=== PATIENT | female | born 1950 | race Caucasian/White ===

== ENCOUNTER 2020-12-19 06:10 | Inpatient (IN) ==
--- NOTE | 2020-11-22 11:31 | PAT Medication Instructions ---
Medication Instructions Date of Service November 22, 2020 Home Medications Medication Instructions Recorded polyethylene glycol 3350 17 17 g PO DAILY #119 g 09/20/20 gram/dose oral powder Wheeled walker with seat #1 ea 09/26/20 hydrocodone 5 mg-acetaminophen 325 See Rx Instructions PO Q8H PRN #60 11/19/20 mg tablet tab polyethylene glycol 3350 17 gram/dose oral powder 17 g PO DAILY Women's Daily Formula 1 tab PO QAM atorvastatin 40 mg PO PM cinnamon bark [Cinnamon] 500 mg PO QAM furosemide [Lasix] 40 mg PO QAM hydrocodone 5 mg-acetaminophen 325 mg tablet PO Q8H PRN STOP taking 2 weeks before surgery If surgery is within 2 weeks, stop taking as soon as possible. cinnamon bark [Cinnamon] 500 mg PO QAM DO NOT take the morning of surgery polyethylene glycol 3350 17 gram/dose oral powder 17 g PO DAILY Women's Daily Formula 1 tab PO QAM furosemide [Lasix] 40 mg PO QAM Take morning of surgery With a small sip of water, OTHERWISE NOTHING TO EAT OR DRINK AFTER MIDNIGHT: hydrocodone 5 mg-acetaminophen 325 mg tablet PO Q8H PRN (if really needed, may be taken up to four hours before surgery) Take evening before surgery atorvastatin 40 mg PO PM hydrocodone 5 mg-acetaminophen 325 mg tablet PO Q8H PRN (if needed) Other Notes If you have any questions please call us at [phone] or [phone] or [phone] or [phone]
--- NOTE | 2020-11-27 12:06 | Anesthesiology Consultation ---
Date of Service November 27, 2020 Assessment & Plan (1) Encounter for pre-operative examination: Chart Review Chart Review: Pending: Refer to Additional Notes / Consult section (pending surgeon ordered PCP clearance/most recent cardio note/ preop Covid testing ) and Patient seen in Pre Admission Testing Awaiting surgeon ordered PCP clearance scheduled 11/30/20 and most recent cardio note - Check [facility] AM DOS Per PAT appointment 11/27/2020, patient denies any recent travel. No known Covid infection past 90 days. No known Covid positive contacts or Covid related symptoms. Preop Covid testing schedule 12/12/20 = will await results. Educated on importance of self quarantining, social distancing and wearing mask in public both for the patient and household contacts. Teaching & Discussion Pre-Anesthesia Teaching/Discussion Notes: Instructed NPO after midnight before surgery,except medications with 15 cc of water. Medication instructions provided according to the [facility] guidelines. History Surgery Operation Date: 12/19/20 07:45 Proposed Procedures p L1-L5 Decompression and Fusion, Spinal Cord Monitoring - Naveed Hale DO Height/Weight Height: 5 ft 6 in Weight: 105.2 kg Allergies Allergy/AdvReac Type Severity Reaction Status Date / Time Penicillins Allergy Mild blotches Uncoded 11/19/20 10:19 on skin Medications Home Medications Medication Instructions Recorded Confirmed Last Taken polyethylene glycol 3350 17 17 g PO DAILY #119 g 09/20/20 11/19/20 10/25/20 19:00 gram/dose oral powder Wheeled walker with seat #1 ea 09/26/20 11/13/20 Unknown Women's Daily Formula 1 tab PO QAM 10/12/20 11/19/20 10/25/20 08:00 atorvastatin 40 mg PO PM 10/12/20 11/19/20 10/25/20 19:00 cinnamon bark [Cinnamon] 500 mg PO QAM 10/12/20 11/19/20 10/25/20 08:00 furosemide [Lasix] 40 mg PO QAM 10/12/20 11/19/20 10/25/20 08:00 hydrocodone 5 mg-acetaminophen 325 See Rx Instructions PO Q8H PRN #60 11/19/20 Unknown mg tablet tab Past Medical History Medical History Anxiety no meds at present Benign essential hypertension No medications at this time Degenerative disc disease, lumbar Eczema Hyperlipidemia Lumbar spinal stenosis Lumbar spondylosis Mitral valve prolapse follows Dr. Sorenson in [place] Per 10/2020 ECHO- mild sclerotic changes to MV with trace MR but otherwise no noted issues Osteoarthritis Prediabetes Diet control per pt PCP monitoring- Hgb A1C up to 6.5 in Sep 2020- PCP monitoring Rosacea Seasonal allergies Urinary incontinence Exercise / Class Metabolic Activity III < 4 Walking/Shop/Light housework (no chest pain or SOB with short distance, flat surface ambulation - uses wheeled walker only when outside of house ) Past Family History Family History Father Coronary heart disease Myocardial infarction, Onset Age: 58 Mother Stroke Dyslipidemia Glaucoma Brother Myocardial infarction Family/Other Breast cancer niece Denies family history of Ovarian cancer Prostate cancer Colorectal cancer Past Surgical History Surgical History History of cardiac cath no stents > 11/28/16 > [facility] History of colonoscopy History of hysterectomy History of tooth extraction S/P cataract extraction (02/2018) bilat S/P right knee arthroscopy (11/09/19) w/ menisectomy medial and lateral Past Anesthesia History No Hx of Anesthesia Complications and No Family Hx of Anesthesia Complications (no known issues but patient unsure - does not discuss specifics with family ) History of PONV No Hx of PONV and No Hx of Motion Sickness Social History Smoking Status: Never smoker Do You Dip or Chew Tobacco: No Hx Alcohol Use: Yes Alcohol type: wine alcohol intake frequency: a few times a month Hx Substance Use: No substance use type: does not use Review of Systems Patient denies chest pain, shortness of breath, dyspnea on exertion, reflux, cough, wheezing, palpitations. No hx of seizures, stroke, [place], apnea/snoring. No hx of blood clots or blood transfusions Physical Exam Vital Signs VITALS BP 165/67 (usually under better control per patient) P 69 TEMP 98.3 SP02 95% RESP 16 Constitutional no acute distress ENMT Mouth: no TMJ clicking Thyromental Distance: < 3.5 Finger Breadths (3.0) Mallampati Class: II Denies loose or missing teeth Neck + short neck, + thick neck and + limited neck extension (minimal ) Respiratory normal respiratory effort; no respiratory distress Auscultation: lungs clear to auscultation bilaterally; no wheezes Cardiovascular Rate/Rhythm: regular rate and regular rhythm Heart Sounds: no murmur Vessels: no carotid bruit Musculoskeletal Spine: no pain with cervical ROM Extremities: extremities normal to inspection Psychiatric Orientation: alert Testing Laboratory Results 11/27/20 12:35 11/27/20 12:35 PT 9.8 Seconds (9.0-12.0) 11/27/20 12:35 INR 1.0 (0.9-1.1) 11/27/20 12:35 APTT 26.8 Seconds (21.0-31.0) 11/27/20 12:35 Hemoglobin A1c 6.2 % (4.5-5.6) H 11/27/20 12:35 Urine Color Yellow 11/27/20 Unknown Urine Appearance Clear (Clear) 11/27/20 Unknown Urine pH 5.0 (4.5-7.5) 11/27/20 Unknown Ur Specific [place] 1.018 (1.000-1.030) 11/27/20 Unknown Urine Protein Negative (Negative) 11/27/20 Unknown Urine Glucose (UA) Negative (Negative) 11/27/20 Unknown Urine Ketones Negative (Negative) 11/27/20 Unknown Urine Nitrite Negative (Negative) 11/27/20 Unknown Ur Leukocyte Esterase Negative (Negative) 11/27/20 Unknown Blood Type O Positive 11/27/20 12:35 Antibody Screen NEGATIVE 11/27/20 12:35 Electrocardiogram Date: 10/17/20 Normal sinus rhythm with sinus arrhythmia at 76 bpm. Poor R wave progression. (Done at cardio office- had ECHO done same day that showed no acute issues) Chest X-Ray Date: 11/27/20 Findings: + NAD Mild bibasilar opacities favor atelectasis or scarring Echocardiogram Date: 10/17/20 EF: 55% LV Function: normal RWMA: + none Other Findings: + LVH (Borderline) Cardiac Catheterization Date: 11/14/16 LM = angiographically normal. LAD = angiographically normal. Circumflex = angiographically normal. RCA = angiographically normal. Patient has angiographically normal coronary arteries, normal left ventriculogram.
--- NOTE | 2020-11-27 13:24 | XRay Report ---
XR chest Pre-admission PA/Lat CLINICAL HISTORY: Preoperative evaluation. COMPARISON STUDY: No previous studies for comparison. FINDINGS: Lung volumes are normal. There is no pneumothorax or pleural effusion. Mild bibasilar opaci ties favor atelectasis or scarring. There is no evidence for pulmonary edema or pneumonia. IMPRESSION: No acute cardiopulmonary findings. ACT 112: Negative or not required by law. Electronically signed by: Fred Whyte M.D. 11/27/2020 1:22 PM
[2020-11-27 15:12] LABS: Hematocrit (blood only) 44.8 % (37-47); Hemoglobin 15.1 g/dL (12.0-16.0); Mean Corpuscular Hemoglobin 31.5 pg (25-34); Mean Corpuscular Volume 93.5 fL (80-100); Red Blood Count 4.79 M/uL (4.2-5.4); White Blood Count 5.71 K/uL (4.8-10.8)
[2020-11-27 15:13] LABS: Basophils # (auto) 0.01 K/uL (0-0.2); Basophils % (auto) 0.2 %; Eosinophils # (auto) 0.11 K/uL (0-0.5); Eosinophils % (auto) 1.9 %; Immature Granulocytes # (auto) 0.02 K/uL (0.00-0.02); Immature Granulocytes % (auto) 0.4 %; Lymphocytes # (auto) 1.62 K/uL (1.2-3.4); Lymphocytes % (auto) 28.4 %; Mean Corpuscular Hgb Conc 33.7 g/dL (32-36); Mean Platelet Volume 9.9 fL (7.4-10.4); Monocytes # (auto) 0.51 K/uL (0.11-0.59); Monocytes % (auto) 8.9 %; Neutrophils # (auto) 3.44 K/uL (1.4-6.5); Neutrophils % (auto) 60.2 %; Platelet Count 164 K/uL (130-400); RDW Coefficient of Variation 12.6 % (11.5-14.5); RDW Standard Deviation 43.3 fL (36.4-46.3)
[2020-11-27 15:24] LABS: BUN Creatinine Ratio 16.2 (10-20); Calcium 9.8 mg/dl (8.5-10.1); Creatinine Clr Calc Pharmacy 77.1 ml/min; Est GFR (African American) 83.4; Potassium 4.1 mmol/L (3.5-5.1)
[2020-11-27 15:25] LABS: Partial Thromboplastin Time 26.8 Seconds (21.0-31.0); Prothrombin Time 9.8 Seconds (9.0-12.0)
[2020-11-27 16:38] LABS: Appearance Urine Clear (Clear); Bilirubin Urine Negative (Negative); Blood Urine Negative (Negative); Color Urine Yellow; Glucose Urine UA Negative (Negative); Ketones Urine Negative (Negative); Leukocyte Esterase Urine Negative (Negative); Nitrite Urine Negative (Negative); Protein Urine Negative (Negative); Specific Gravity Urine 1.018 (1.000-1.030); Urobilinogen Urine Negative (Negative)
[2020-11-28 05:57] LABS: Estimated Average Glucose 131 mg/dl; Hemoglobin A1C 6.2 % (4.5-5.6)
[~2020-12-19 06:10] MED LIST: ACETAMINOPHEN 500 MG TAB PO SCH; CLINDAMYCIN 600 MG/54 ML BAG IV SCH; CeleBREX 200 MG CAP PO SCH; GABAPENTIN 300 MG CAP PO SCH; LR 15ML/HR IV SCH
[2020-12-19] MEDS ORDERED: fentaNYL citrate 100 MCG/2 ML VIAL ONE (07:08)
[2020-12-19] MEDS ORDERED: MIDAZOLAM HCL 1 MG/ML 2ML VIAL ONE (07:08)
[2020-12-19] MEDS ORDERED: ALBUMIN HUMAN 5% 12.5 GM/250 ML VIAL IV ONE (07:13)
[2020-12-19] MEDS ORDERED: BACITRACIN INJ 50,000 UNIT VIAL ONE (07:14)
[2020-12-19] MEDS ORDERED: BUPIVACAINE/EPINEPHRINE 0.5% MPF 1:200,000 30 ML VIAL ONE (07:14)
--- NOTE | 2020-12-19 07:38 | History & Physical Bridge Note ---
Date of Service December 19, 2020 History & Physical Bridge Note I have examined the patient, reviewed the History & Physical and in the interval since the performance of the History & Physical I have noted the following changes of clinical significance: no changes noted
--- NOTE | 2020-12-19 07:39 | History & Physical Report ---
Date of Service December 19, 2020 Assessment & Plan (1) Neurogenic claudication due to lumbar spinal stenosis: Admission and Anticipated Discharge Date Admission Date: L1-L5 decompression fusion History of Present Illness Chief Complaint: Back and bilateral leg pain Primary Care Provider: Christina Cortez DO This is a 70-year-old female who presents with chronic persistent back and bilateral leg pain. After failing course of nonoperative care is here for surgical invention. Allergies Allergy/AdvReac Type Severity Reaction Status Date / Time Penicillins Allergy Mild blotches Uncoded 12/19/20 06:43 on skin Home Medications Medication Instructions Recorded Confirmed Type Wheeled walker with seat #1 ea 09/26/20 11/30/20 Rx Women's Daily Formula 1 tab PO QAM 10/12/20 12/19/20 History atorvastatin 40 mg PO PM 10/12/20 12/19/20 History cinnamon bark [Cinnamon] 500 mg PO QAM 10/12/20 12/19/20 History furosemide [Lasix] 40 mg PO QAM 10/12/20 12/19/20 History hydrocodone 5 mg-acetaminophen 325 See Rx Instructions PO Q8H PRN #60 12/11/20 12/19/20 Rx mg tablet tab Past Med/Surg History Medical History Anxiety Benign essential hypertension Degenerative disc disease, lumbar Eczema Hyperlipidemia Lumbar spinal stenosis Lumbar spondylosis Mitral valve prolapse Osteoarthritis Prediabetes Rosacea Seasonal allergies Urinary incontinence Surgical History History of cardiac cath History of colonoscopy History of hysterectomy History of tooth extraction S/P cataract extraction (02/2018) S/P right knee arthroscopy (11/09/19) Family History Father Coronary heart disease Myocardial infarction, Onset Age: 58 Mother Stroke Dyslipidemia Glaucoma Brother Myocardial infarction Family/Other Breast cancer niece Denies family history of Ovarian cancer Prostate cancer Colorectal cancer Social History Smoking Status: Never smoker Second Hand Exposure: No; Do You Dip or Chew Tobacco: No; Tobacco Cessation Education Requested by Patient: No Hx Alcohol Use: Yes Alcohol type: wine Alcohol Intake Frequency: Monthly or Less Hx Substance Use: No Preferred Language: Macedonian Communication Ability: Effective Visual Impairment: No Limitations Hearing Ability: Normal Stone Layout Marker Required: No Beliefs That Will Affect Care: None marital status: Current Living Situation: Significant Other 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 Other Information That Helps Us Care for You: No Feels Safe at Home: Yes Safety Concerns: Feels Safe At This Time Childhood Exposure to Second-Hand Smoke: No Diet Comment: regular caffeine: Yes during the past year weight has: remained stable Dental Care, Regularly: Yes Physical Activity Frequency: 1-2 Times per Week Seatbelt Use: always Sunscreen Use: Yes Assistive Devices: Glasses and Walker Physical Exam Physical Exam: Patient is alert and oriented Heart regular rate and rhythm Lungs clear to auscultation Results & Data ([facility]) Vital Signs (Past 12 Hours) Vital Signs Temp Pulse Resp BP Pulse Ox 12/19/20 06:53 36.6 C 67 20 162/82 H 95
[2020-12-19] MEDS ORDERED: ePHEDrine sulfate 50 MG/ML AMP IV PRN (07:41)
[2020-12-19] MEDS ORDERED: ONDANSETRON INJ 2 MG/ML 2 ML VIAL IV PRN ×2 (07:41→13:01)
[2020-12-19] MEDS ORDERED: PROMETHAZINE HCL 12.5 MG in SODIUM CHLORIDE 0.9% 50 ML IV PRN ×2 (07:41→13:01)
[2020-12-19] MEDS ORDERED: fentaNYL citrate 100 MCG/2 ML VIAL IV PRN (07:41)
[2020-12-19] MEDS ORDERED: HYDROmorphone INJ 2 MG/ML SYR/VIAL IV PRN (07:41)
[2020-12-19] MEDS ORDERED: ATROPINE SULFATE 0.1 MG/ML 10ML SYR IV PRN (07:41)
[2020-12-19] MEDS ORDERED: KETAMINE 50 MG/5 ML SYRINGE ONE (08:32)
[2020-12-19] MEDS ORDERED: HYDROmorphone INJ 2 MG/ML SYR/VIAL ONE (08:33)
[2020-12-19] MEDS ORDERED: LIDOCAINE HCL 2% 2 ML VIAL/AMP(20MG/ML) INFIL ONE (10:35)
[2020-12-19] MEDS ORDERED: NEOSTIGMINE METHYLSULFATE 1 MG/ML 10ML VIAL ONE (10:35)
[2020-12-19] MEDS ORDERED: GLYCOPYRROLATE 0.2 MG/ML VIAL ONE (10:35)
[2020-12-19] MEDS ORDERED: PROPOFOL IV EMULSION 10 MG/ML 20 ML VIAL IV ONE (10:35)
[2020-12-19] MEDS ORDERED: DEXAMETHASONE SOD INJ 4 MG/ML VIAL ONE (10:35)
[2020-12-19] MEDS ORDERED: ROCURONIUM BROMIDE 10 MG/ML 5 ML VIAL IV ONE (10:35)
[2020-12-19] MEDS ORDERED: ONDANSETRON INJ 2 MG/ML 2 ML VIAL ONE (10:35)
[2020-12-19] MEDS ORDERED: ePHEDrine sulfate 50 MG/ML SYR ONE (10:35)
[2020-12-19] MEDS ORDERED: FLOSEAL HEMOSTATIC MATRIX 10ML TOP ONE (10:38)
--- NOTE | 2020-12-19 10:42 | Operative Report ---
Post Operative Report Pre & Post Diagnosis Operation Date: 12/19/20 07:45 Pre-Op Diagnosis: Spinal Stenosis, Lumbar Region with Neurogenic Claudication Lumbar spondylolisthesis L4-5 Obesity Post-Op Diagnosis: Same I identified the patient and participated in the time-out.: Yes Procedure Operation Date: 12/19/20 07:45 Actual Procedures #1 lumbar decompression with bilateral medial facetectomies and foraminotomies L1-2, L2-3, L3-4 and L4-5. #2 posterior spinal fusion L1-2, L2-3, L3-4 and L4- 5. #3 placed posterior segmental instrumentation L1-L5. #4 interbody fusion L4-5. #5 placement peek cage 12 x 26 mm at L4-5. #6 placement locally harvested morselized autograft in the posterior lateral gutters. #7 placement of I factor in the interbody space and infuse collagen sponge, master graft in the posterior lateral gutters. Surgeon Naveed Hale, DO Inside Sales Coordinator Iliana Ayala Estimated Blood Loss 950 Findings See Below The patient is 5 foot 6 weighing over 105 kg with a BMI in excess of 37. This combined with an EBL of greater than 950 cc created significant technical difficulty requiring her deepest retractors longus instruments order to perform her procedure. This had at least 50% increase to the operative time. Specimens None Indications This is a 70-year-old female who presents with above-mentioned diagnosis after failed extensive course of nonoperative care she is here for department procedure. Description of Procedure Patient was met with identified informed consent obtained. Patient was then taken to the operative suite underwent a patient placed in a prone position the Caden table top of some frame. All bony prominences well-padded eyes inspected to ensure no external pressure placed upon up at this point lumbar spine was prepped and draped in a sterile fashion. Sharp dissection with the assistance of Bovie cautery performed down to and exposing the lamina and transverse processes of L1-L2-L3 and L4 and L5 bilaterally. From caudal cephalad fashion complete laminectomy of L4 L3 L2 and L1 was performed including bilateral medial facetectomies and foraminotomies addressing severe spinal stenosis. Pedicle screws were then placed in L1-L2 L3-L4-L5 bilaterally with the assistance of fluoroscopy the proper sized john placed. By way of a transfemoral approach and left complete discectomy was performed endplates curetted to subcortically bone and a 12 x 26 mm peek cage filled with I factor tapped in position. The transverse processes of L1-L2 L3-L4-L5 were then burred to subcortical being bone. Infuse collagen sponge master graft lobe autograft was placed in the posterior gutters. 15 round SYLVESTER drain inserted. The incision was then closed with 1 Vicryl in the fascia 2-0 Vicryl subcutaneously and 4 Monocryl for final skin closure. Steri-Strip sterile dressings placed. Patient waken taken to PACU stable condition. Please note spinal cord monitoring was utilized at the procedure no changes noted. Lastly Iliana Ayala was present at the entire surgery involved the patient positioning complex portions of the surgery and final skin closure. I attest to the content of the Intraoperative Record and any orders documented therein. Any exceptions are noted below.
--- NOTE | 2020-12-19 11:20 | Fluoroscopy Report ---
FL lumbar spine 2-3V CLINICAL HISTORY: L1-5 DECOMPRESSION/FUSION/INTERBODY COMPARISON STUDY: Lumbar spine MRI October 26, 2020. FLUOROSCOPY TIME: 28 seconds. FLUOROSCOPIC IMAGES: 3 FINDINGS: Fluoroscopy was performed during L4-L5 discectomy with interbody spacer placement. Posterio r decompression is noted. Bilateral pedicle screw fusion from L1 through L5 is noted. There are inter connecting rods. Hardware is intact. There are no unexpected radiopaque foreign bodies. IMPRESSION: Fluoroscopy provided during L4-L5 discectomy and posterior decompression with L1-L5 bila teral pedicle screw fusion. ACT 112: Negative or not required by law. Electronically signed by: Fred Whyte M.D. 12/19/2020 11:19 AM
--- NOTE | 2020-12-19 12:20 | Anesthesiology Progress Note ---
Date of Service December 19, 2020 Anesthesia Post Procedure Vital Signs Vital Signs: Temp Pulse Pulse Resp BP Pulse Ox 12/19/20 12:10 36.5 C 73 16 134/69 94 12/19/20 12:00 36.5 C 78 16 142/76 H 95 12/19/20 11:50 79 15 144/73 H 94 12/19/20 11:40 71 12 142/76 H 94 12/19/20 11:30 83 12 154/87 H 94 12/19/20 11:20 82 12 162/84 H 94 12/19/20 11:10 89 16 170/87 H 94 12/19/20 11:04 36.5 C 96 H 14 193/98 H 94 12/19/20 06:53 36.6 C 67 20 162/82 H 95 Pain Intensity Left Leg: Pain Intensity: 6 Transfer of Care Handoff Completed per policy Notes Mental Status: alert / awake / arousable and participated in evaluation Patient Amnestic to Procedure: Yes Nausea / Vomiting: adequately controlled Pain: adequately controlled Airway Patency, RR, SpO2: stable & adequate BP & HR: stable & adequate Hydration State: stable & adequate Anesthetic Complications: no major complications apparent and Pt Satisfied with anesthetic care
[2020-12-19] MEDS ORDERED: HYDROmorphone INJ 1 MG/ML SYRINGE IV PRN (13:01)
[2020-12-19] MEDS ORDERED: LORazepam 0.5 MG/1 ML VIAL IV PRN (13:01)
[2020-12-19] MEDS ORDERED: FAMOTIDINE 20 MG TAB PO PRN (13:01)
[2020-12-19] MEDS ORDERED: LORazepam 0.5 MG TAB PO PRN (13:01)
[2020-12-19] MEDS ORDERED: HYDROmorphone INJ 0.5 MG/0.5 ML SYR IV PRN (13:01)
[2020-12-19] MEDS ORDERED: bisacodyL 10 MG SUPP PR PRN (13:01)
[2020-12-19] MEDS ORDERED: DO NOT ADMINISTER FLU VACCINE PRN (13:01)
[2020-12-19] MEDS ORDERED: DO NOT ADMINISTER PNEUMOCOCCAL VACCINE PRN (13:01)
[2020-12-19] MEDS ORDERED: MAGNESIUM HYDROXIDE SUSP 30 ML UDC PO PRN (13:01)
[2020-12-19] MEDS ORDERED: diphenhydrAMINE Capsule 25 MG CAP PO PRN (13:01)
[2020-12-19] MEDS ORDERED: METOCLOPRAMIDE HCL INJ 5 MG/ML 2 ML VIAL IV PRN (13:01)
[2020-12-19] MEDS ORDERED: ACETAMINOPHEN 1,000 MG/100 ML VIAL IV PRN (13:01)
[2020-12-19] MEDS ORDERED: SOD PHOSPHATE/SOD BIPHOSPHATE ENEMA 132 ML BTL PR PRN (13:01)
[2020-12-19] MEDS ORDERED: ACETAMINOPHEN 500 MG TAB PO PRN (13:01)
[2020-12-19] MEDS ORDERED: oxyCODONE HCL IR 5 MG TAB (IMMEDIATE RELEASE) PO PRN (13:01)
[2020-12-19] MEDS ORDERED: NALOXONE HCL 0.4 MG/1 ML VIAL/CARP IV PRN (13:01)
[2020-12-19] MEDS ORDERED: ONDANSETRON 4 MG OD TAB PO PRN (13:01)
[2020-12-19] MEDS ORDERED: hydrOXYzine HCl 25 MG TAB PO PRN (13:01)
[2020-12-19] MEDS ORDERED: ALUMINUM/MAGNESIUM SUSP 30 ML UDC PO PRN (13:01)
[2020-12-19] MEDS: LACTATED RINGER'S 1,000 ML IV SCH ×2 (13:30→18:58)
--- NOTE | 2020-12-19 13:52 | Consultation ---
Date of Consultation December 19, 2020 Assessment & Plan (1) Neurogenic claudication due to lumbar spinal stenosis: s/p extensive lumbar surgery today as follows: lumbar decompression with bilateral medial facetectomies and foraminotomies L1- 2, L2-3, L3-4 and L4-5. posterior spinal fusion L1-2, L2-3, L3-4 and L4-5. placed posterior segmental instrumentation L1-L5. interbody fusion L4-5. Defer pain management, DVT proph, and disposition to primary orthopedic team. (2) Prediabetes: Last HbA1C was 6.2%. She did have perioperative steroids and I suspect BSGs will be high for about 24 hours. Recommend diabetes diet and checking BSGs ac/hs for now. Can add basal and/or bolus insulin if hyperglycemic. While here - nutrition consult for DM teaching; clinical staff educator as well. (3) Mitral valve prolapse: Follows with Dr Sorenson in [place]. Most recent echo in 2020 without significant regurgitation. Stable. (4) Hyperlipidemia: Can continue statin while here. (5) Obesity: BMI 37.6 (6) Blood loss: Operative record indicates 950cc of blood loss. I anticipate she will have resulting acute blood loss anemia. Check cbc am. Follow BPs and UOP carefully in light of this. (7) DVT prophylaxis: SCDs. Chemical means contraindicated due to nature of her lumbar surgery. Thank you for the consult. Medicine will follow along. History of Present Illness Requesting Physician: Richard Hale DO Reason for Consultation: post-op medical management Attending Physician: Naveed Hale DO History of Present Illness 70yo female with long-standing lumbar back pain, pre-DM, and obesity who presented today for elective lumbar decompression-fusion procedure by Dr Hale. I saw her post-op on the orthopedic floor and she was resting comfortably. Denied any chest pain, dyspnea, abdominal pain. No nausea/emesis. She is aware of her Pre-T2DM diagnosis and reports f/u with Dr Cortez is already scheduled for December 24 to discuss it in detail. Prior to this surgery has been feeling well. No recent COVID symptoms including cough, dyspnea, fevers, loss of taste/smell, nausea/vomiting/diarrhea, etc. Allergies Allergy/AdvReac Type Severity Reaction Status Date / Time Penicillins Allergy Mild blotches Uncoded 12/19/20 06:43 on skin Home Medications Medication Instructions Recorded Confirmed Type Wheeled walker with seat #1 ea 09/26/20 11/30/20 Rx Women's Daily Formula 1 tab PO QAM 10/12/20 12/19/20 History atorvastatin 40 mg PO PM 10/12/20 12/19/20 History cinnamon bark [Cinnamon] 500 mg PO QAM 10/12/20 12/19/20 History furosemide [Lasix] 40 mg PO QAM 10/12/20 12/19/20 History hydrocodone 5 mg-acetaminophen 325 See Rx Instructions PO Q8H PRN #60 12/11/20 12/19/20 Rx mg tablet tab Patient History Medical History (Updated 12/19/20 @ 14:48 by Shahid Vergara) Anxiety no meds at present Benign essential hypertension No medications at this time Degenerative disc disease, lumbar Eczema Hyperlipidemia Lumbar spinal stenosis Lumbar spondylosis Mitral valve prolapse follows Dr. Sorenson in [place] Per 10/2020 ECHO- mild sclerotic changes to MV with trace MR but otherwise no noted issues Osteoarthritis Prediabetes Diet control per pt PCP monitoring- Hgb A1C up to 6.5 in Sep 2020- PCP monitoring Rosacea Seasonal allergies Urinary incontinence Surgical History (Updated 12/19/20 @ 14:37 by Shahid Vergara) History of cardiac cath normal coronaries; no stents > 11/28/16 > [facility] History of colonoscopy History of hysterectomy History of tooth extraction S/P cataract extraction (02/2018) bilat S/P right knee arthroscopy (11/09/19) w/ menisectomy medial and lateral Family History Father Coronary heart disease Myocardial infarction, Onset Age: 58 Mother Stroke Dyslipidemia Glaucoma Brother Myocardial infarction Family/Other Breast cancer niece Denies family history of Ovarian cancer Prostate cancer Colorectal cancer Social History Smoking Status: Never smoker Second Hand Exposure: No; Do You Dip or Chew Tobacco: No; Tobacco Cessation Education Requested by Patient: No Hx Alcohol Use: Yes Alcohol type: wine Alcohol Intake Frequency: Monthly or Less Hx Substance Use: No Preferred Language: Serbian Communication Ability: Effective Visual Impairment: No Limitations Hearing Ability: Normal Abattoir Manager Required: No Beliefs That Will Affect Care: None marital status: Current Living Situation: Significant Other 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 Other Information That Helps Us Care for You: No Feels Safe at Home: Yes Safety Concerns: Feels Safe At This Time Childhood Exposure to Second-Hand Smoke: No Diet Comment: regular caffeine: Yes during the past year weight has: remained stable Dental Care, Regularly: Yes Physical Activity Frequency: 1-2 Times per Week Seatbelt Use: always Sunscreen Use: Yes Assistive Devices: Glasses and Walker Review of Systems Constitutional: no fever, no chills, no fatigue and no anorexia Eyes: no worsening vision Ear, Nose, Mouth, Throat: no nasal congestion and no sore throat Respiratory: no cough, no dyspnea and no dyspnea on exertion Cardiovascular: no chest pain Gastrointestinal: no abdominal pain, no nausea, no vomiting and no diarrhea/loose stools Genitourinary: no dysuria Musculoskeletal: + back pain Integumentary: no rash Neurologic: no localized weakness Psychiatric: + abnormal sleep pattern (poor sleep last pm due to anxiety about surgery) Endocrine: known pre-DM but doesn't check sugars Hematologic / Lymphatic: no easy bleeding and no easy bruising Physical Exam Constitutional: + obese; no acute distress and no altered mental status Eyes: PERRL lens implants b/l ENMT: external ear and nose normal, oropharynx normal Neck: trachea midline, no thyromegaly Respiratory: normal respiratory effort, lungs clear to auscultation Cardiovascular: Rate/Rhythm: regular rate and regular rhythm Heart Sounds: normal S1 and normal S2; no murmur Vessels: posterior tibial pulses present and dorsalis pedis pulses present; no JVD Extremities: + edema (1-2+ b/l LEs) Gastrointestinal (Abdomen): normal bowel sounds, soft, nontender, no hepatosplenomegaly Musculoskeletal: no cyanosis or clubbing, extremities motor strength 5/5 Skin: no rashes, warm and dry Neurologic: deep tendon reflexes 2+ bilaterally and moves all extremities; no focal motor deficits Psychiatric: Orientation: alert and oriented x 3 Affect: + tearful affect Genitourinary: triplett in place Lymphatic: no cervical lymphadenopathy Results & Data ([facility]) Vital Signs (Past 12 Hours) Vital Signs Temp Pulse Pulse Resp BP Pulse Ox 12/19/20 13:15 36.7 C 83 15 119/69 95 12/19/20 12:45 36.5 C 86 16 148/62 H 94 12/19/20 12:25 78 16 115/68 93 12/19/20 12:10 36.5 C 73 16 134/69 94 12/19/20 12:00 36.5 C 78 16 142/76 H 95 12/19/20 11:50 79 15 144/73 H 94 12/19/20 11:40 71 12 142/76 H 94 12/19/20 11:30 83 12 154/87 H 94 12/19/20 11:20 82 12 162/84 H 94 12/19/20 11:10 89 16 170/87 H 94 12/19/20 11:04 36.5 C 96 H 14 193/98 H 94 12/19/20 06:53 36.6 C 67 20 162/82 H 95 Laboratory Results preop labs: Hb 15.1 on 11/27/20 Cr 0.82 on 11/27/20 Diagnostic Findings preop cxr - no infiltrates preop EKG - my reading - NSR, poor R wave progression, no ST changes PG Care Time/CCT Total # of Minutes Spent Total Time Spent with Patient: Total time spent is greater than 50% in coordination of care (as documented) at patient's floor/unit and/or counseling patient: Coding Level of Care Code 12209 Subseq Hosp Care Lvl 3 Diagnoses Neurogenic claudication due to lumbar spinal stenosis M48.062 Prediabetes R73.03 Mitral valve prolapse I34.1 Hyperlipidemia E78.5 Obesity E66.9 Blood loss R58 DVT prophylaxis Z29.9
[2020-12-19] MEDS: CLINDAMYCIN 600 MG in DEXTROSE 5% 50 ML IV SCH (16:32)
[2020-12-19] MEDS: DOCUSATE SODIUM/SENNA 50/8.6MG TAB PO SCH (20:48)
[2020-12-19] MEDS: ATORVASTATIN 40 MG TAB PO SCH (20:48)
[2020-12-19] MEDS ORDERED: SODIUM CHLORIDE 0.9% 1000ML 1,000 ML IV ONE (21:51)
[2020-12-20] MEDS: CLINDAMYCIN 600 MG in DEXTROSE 5% 50 ML IV SCH (00:15)
[2020-12-20] MEDS: LACTATED RINGER'S 1,000 ML IV SCH ×3 (01:55→14:47)
[2020-12-20] MEDS: POLYETHYLENE (MIRALAX) 17 GM PACK PO SCH ×3 (05:52→18:29)
[2020-12-20] MEDS: traMADol HCL 50 MG TABLET PO PRN ×3 (07:30→21:19)
--- NOTE | 2020-12-20 08:28 | Hospitalist Progress Note ---
Date of Service December 20, 2020 Assessment & Plan (1) Neurogenic claudication due to lumbar spinal stenosis: POD#1 s/p extensive lumbar decompression with Dr. Hale on 12/19. * Surgery as follows: * #1 lumbar decompression with bilateral medial facetectomies and foraminotomies L1-2, L2-3, L3-4 and L4-5.#2- posterior spinal fusion L1-2, L2-3, L3-4 and L4- 5. #3 placed posterior segmental instrumentation L1-L5. #4- interbody fusion L4-5. * Pre-op h/h 15.1/44 * EBL 950cc from operative report (in addition to SYLVESTER output recorded as 720cc + 75cc thus far) * h/h dropped to 10.9/33.5 post operatively -- acute blood loss anemia from blood loss from surgery as well as dilutional from IVF as ordered additional 1L by medicine last evening for expected volume depletion from blood loss * PT/OT/pain management/DVT prophylaxis per primary service * WBC 11k likely from steroids in operative period. Afebrile -- continue to monitor * Will d/c IVF given patient eating/drinking without difficulty and actually little volume up on exam CBC, BMP in AM (2) Prediabetes: * Last HbA1C was 6.2%. * Got dexamethasone perioperatively so suspect increase BSGs for today * Diabetic diet, nutirion consulted for DM teaching as well as breastfeeding educator * Has follow up appt with Dr. Cortez for further discussion about this already * BSGs 116-144 * Continue to monitor -- can add basal +/- bolus insulin if needed (3) Mitral valve prolapse: * Follows with Dr Sorenson in [place]. * Most recent echo in 2020 without significant regurgitation. * Holding lasix post-operatively -- on 40mg PO CUSTOMER CONTACT SPECIALIST --> will resume today for 1- 2+ b/l edema * Stable. (4) Hyperlipidemia: * Most recent lipid panel Sep 2020 - trig 223, cholesterol 187, LDL 100, HDL 42 * Continue Lipitor 40mg HS * Consider adding ezetimibe as outpatient for triglycerides -- defer to PCP at outpt f/u (5) Obesity: * BMI 37.6 * Encourage dietary changes/increased activity/healthy lifestyle (6) Blood loss: * Operative record indicates 950cc of blood loss. * UO acceptable. BP stable. H/h drop as above Constipation * Has been dealing with constipation at home. * Likely related to pain medication * No help with miralax or colace per her and using prune juice at home -- offered what we have here but she would rather have BF bring in tomorrow if needed * Agreeable to try mag citrate today * Check TSH in AM with l/e edema * Continue to monitor (7) DVT prophylaxis: * SCDs, anurag mckinney (discussed continuing stockings at home to prevent swelling) * Chemical means contraindicated due to nature of her lumbar surgery. Plans on home health at d/c Thank you for the consult. Medicine will follow along. (8) Acute blood loss anemia: Admission and Anticipated Discharge Date Admission Date: December 19, 2020 Subjective Patient evaluated this afternoon. She has been up in chair twice for several hours and also worked with therapy. She thinks maybe she overdid it today but was unsure her limitations. She expressed concerns about not being able to walk in the future. Very anxious about having to stay longer than she expected but discussed blood loss and just close monitoring to ensure best outcome given severity of disease and extensive surgery. Vega removed today and she states she feels like she has to void. Eating/drinking without issues but states she has not had a BM since day prior to surgery. Utilizing prune juice at home as she states miralax and colace over the counter had been ineffective. Denies passing gas but hears stomach grumbling. No abdom inal pain or nausea. She will have BF bring in tomorrow if needed as she has a specific type she likes. She is pushing fluids and we will decrease her IV rate. She is using incentive spirometer but had questions about how often she should be using. No fever, chills, chest pain, shortness of breath, abdominal pain, nausea, vomiting or dysuria. Review of Systems Review of Systems: All systems reviewed & are unremarkable except as noted in HPI & below Physical Exam Constitutional: + obese; no acute distress and no altered mental status Eyes: PERRL lens implants b/l ENMT: external ear and nose normal, oropharynx normal Neck: trachea midline, no thyromegaly Respiratory: normal respiratory effort, lungs clear to auscultation Cardiovascular: Rate/Rhythm: regular rate and regular rhythm Heart Sounds: normal S1, normal S2 and + murmur (MVP) Vessels: posterior tibial pulses present and dorsalis pedis pulses present; no JVD Extremities: + edema (1-2+ b/l LEs -- stocking being applied as I left) Gastrointestinal (Abdomen): normal bowel sounds, soft, nontender, no hepatosplenomegaly Musculoskeletal: no cyanosis or clubbing, extremities motor strength 5/5 dressing to lumbar spine c/d/i NVI pulses palpable bilaterally calves non-tender SYLVESTER drain with 30cc bloody output Skin: no rashes, warm and dry Neurologic: deep tendon reflexes 2+ bilaterally and moves all extremities; no focal motor deficits Psychiatric: Orientation: alert and oriented x 3 Affect: + anxious affect and + tearful affect Genitourinary: NO VEGA Lymphatic: no cervical lymphadenopathy Results & Data Results & Data ([facility]) Vital Signs (Past 12 Hours) Vital Signs Temp Pulse Resp BP BP Pulse Ox 12/20/20 07:43 37 C 70 16 159/74 H 93 12/20/20 04:19 36.7 C 76 18 145/81 H 92 12/19/20 22:58 36.8 C 92 H 18 123/69 93 Laboratory Results 12/20/20 12/20/20 12/20/20 Range/Units 08:07 07:59 07:59 WBC 11.04 H (4.8-10.8) K/uL RBC 3.56 L (4.2-5.4) M/uL Hgb 10.9 L (12.0-16.0) g/dL Hct 33.5 L (37-47) % MCV 94.1 (80-100) fL MCH 30.6 (25-34) pg MCHC 32.5 (32-36) g/dL RDW Std Deviation 44.0 (36.4-46.3) fL RDW Coeff of Julieth 12.8 (11.5-14.5) % Plt Count 176 (130-400) K/uL MPV 9.6 (7.4-10.4) fL Immature Gran % (Auto) 0.4 % Neut % (Auto) 73.5 % Lymph % (Auto) 17.9 % [place] % (Auto) 8.2 % Eos % (Auto) 0.0 % Baso % (Auto) 0.0 % Neut # (Auto) 8.11 H (1.4-6.5) K/uL Lymph # (Auto) 1.98 (1.2-3.4) K/uL [place] # (Auto) 0.91 H (0.11-0.59) K/uL Eos # (Auto) 0.00 (0-0.5) K/uL Baso # (Auto) 0.00 (0-0.2) K/uL Immature Gran # (Auto) 0.04 H (0.00-0.02) K/uL Sodium Pending Potassium Pending Chloride Pending Carbon Dioxide Pending Anion Gap Pending BUN Pending Creatinine Pending Est Cr Clr Drug Dosing Pending Est GFR ( Amer) Pending Est GFR (Non-Af Amer) Pending BUN/Creatinine Ratio Pending Glucose Pending POC Glucose 144 H (70-99) mg/dl Calcium Pending Hepatitis C Ab Screen 12/20/20 Range/Units 07:59 WBC (4.8-10.8) K/uL RBC (4.2-5.4) M/uL Hgb (12.0-16.0) g/dL Hct (37-47) % MCV (80-100) fL MCH (25-34) pg MCHC (32-36) g/dL RDW Std Deviation (36.4-46.3) fL RDW Coeff of Julieth (11.5-14.5) % Plt Count (130-400) K/uL MPV (7.4-10.4) fL Immature Gran % (Auto) % Neut % (Auto) % Lymph % (Auto) % [place] % (Auto) % Eos % (Auto) % Baso % (Auto) % Neut # (Auto) (1.4-6.5) K/uL Lymph # (Auto) (1.2-3.4) K/uL [place] # (Auto) (0.11-0.59) K/uL Eos # (Auto) (0-0.5) K/uL Baso # (Auto) (0-0.2) K/uL Immature Gran # (Auto) (0.00-0.02) K/uL Sodium Potassium Chloride Carbon Dioxide Anion Gap BUN Creatinine Est Cr Clr Drug Dosing Est GFR ( Amer) Est GFR (Non-Af Amer) BUN/Creatinine Ratio Glucose POC Glucose (70-99) mg/dl Calcium Hepatitis C Ab Screen Pending PG Care Time/CCT Total # of Minutes Spent Total Time Spent with Patient: Total time spent is greater than 50% in coordination of care (as documented) at patient's floor/unit and/or counseling patient: Coding Level of Care Code 40467 Subseq Hosp Care Lvl 3 Diagnoses Neurogenic claudication due to lumbar spinal stenosis M48.062 Prediabetes R73.03 Mitral valve prolapse I34.1 Hyperlipidemia E78.5 Obesity E66.9 Blood loss R58 DVT prophylaxis Z29.9 Acute blood loss anemia D62
[2020-12-20 08:40] LABS: Hematocrit (blood only) 33.5 % (37-47); Hemoglobin 10.9 g/dL (12.0-16.0); Immature Granulocytes # (auto) 0.04 K/uL (0.00-0.02); Immature Granulocytes % (auto) 0.4 %; Lymphocytes # (auto) 1.98 K/uL (1.2-3.4); Lymphocytes % (auto) 17.9 %; Mean Corpuscular Hemoglobin 30.6 pg (25-34); Mean Corpuscular Hgb Conc 32.5 g/dL (32-36); Mean Corpuscular Volume 94.1 fL (80-100); Mean Platelet Volume 9.6 fL (7.4-10.4); Monocytes # (auto) 0.91 K/uL (0.11-0.59); Monocytes % (auto) 8.2 %; Neutrophils # (auto) 8.11 K/uL (1.4-6.5); Neutrophils % (auto) 73.5 %; Platelet Count 176 K/uL (130-400); RDW Coefficient of Variation 12.8 % (11.5-14.5); Red Blood Count 3.56 M/uL (4.2-5.4); White Blood Count 11.04 K/uL (4.8-10.8)
[2020-12-20] MEDS ORDERED: FUROSEMIDE 40 MG TAB PO SCH (09:00)
[2020-12-20 09:08] LABS: BUN Creatinine Ratio 14.3 (10-20); Calcium 8.7 mg/dl (8.5-10.1); Creatinine Clr Calc Pharmacy 71.3 ml/min; Est GFR (African American) 75.6; Est GFR (Non-African American) 65.2
--- NOTE | 2020-12-20 11:15 | Orthopedic Progress Note ---
Date of Service December 20, 2020 Assessment & Plan (1) Neurogenic claudication due to lumbar spinal stenosis: Admission and Anticipated Discharge Date Admission Date: December 19, 2020 At this time we will continue physical therapy monitor SYLVESTER output anticipate discharge home with home health in the next few days. Subjective Back pain controlled leg pain improved Physical Exam Physical Exam: Patient is in the chair at the bedside. Is good strength testing. Results & Data ([facility]) Vital Signs (Past 12 Hours) Vital Signs Temp Pulse Resp BP BP Pulse Ox 12/20/20 07:43 37 C 70 16 159/74 H 93 12/20/20 04:19 36.7 C 76 18 145/81 H 92
[2020-12-20] MEDS ORDERED: MAGNESIUM CITRATE 296 ML/BTL PO ONE (15:08)
[2020-12-20] MEDS: ATORVASTATIN 40 MG TAB PO SCH (21:16)
[2020-12-20] MEDS: DOCUSATE SODIUM/SENNA 50/8.6MG TAB PO SCH (21:17)
[2020-12-21] MEDS: POLYETHYLENE (MIRALAX) 17 GM PACK PO SCH ×3 (00:46→12:05)
[2020-12-21] MEDS: traMADol HCL 50 MG TABLET PO PRN ×3 (02:05→16:40)
[2020-12-21 07:47] LABS: Basophils # (auto) 0.01 K/uL (0-0.2); Basophils % (auto) 0.1 %; Eosinophils # (auto) 0.03 K/uL (0-0.5); Eosinophils % (auto) 0.4 %; Hematocrit (blood only) 30.6 % (37-47); Immature Granulocytes # (auto) 0.05 K/uL (0.00-0.02); Immature Granulocytes % (auto) 0.6 %; Lymphocytes # (auto) 1.83 K/uL (1.2-3.4); Lymphocytes % (auto) 21.6 %; Mean Corpuscular Hemoglobin 31.1 pg (25-34); Mean Corpuscular Hgb Conc 32.7 g/dL (32-36); Mean Platelet Volume 9.3 fL (7.4-10.4); Monocytes # (auto) 0.74 K/uL (0.11-0.59); Monocytes % (auto) 8.7 %; Neutrophils # (auto) 5.81 K/uL (1.4-6.5); Neutrophils % (auto) 68.6 %; Platelet Count 132 K/uL (130-400); RDW Standard Deviation 44.8 fL (36.4-46.3); Red Blood Count 3.22 M/uL (4.2-5.4); White Blood Count 8.47 K/uL (4.8-10.8)
[2020-12-21 08:24] LABS: BUN Creatinine Ratio 16.6 (10-20); Calcium 7.9 mg/dl (8.5-10.1); Creatinine Clr Calc Pharmacy 71.3 ml/min; Est GFR (African American) 75.6; Est GFR (Non-African American) 65.2; Potassium 3.6 mmol/L (3.5-5.1)
[2020-12-21 08:35] LABS: Thyroid Stimulating Hormone 2.03 uIu/ml (0.300-4.500)
[2020-12-21] MEDS: dexAMETHasone 8 MG in SYRINGE 0 ML IV SCH (09:34)
--- NOTE | 2020-12-21 12:49 | Hospitalist Progress Note ---
Date of Service December 21, 2020 Assessment & Plan (1) Postoperative ileus: Patient stated she had not moved her bowels or passed gas since before surgery. She has tried MiraLAX and Colace [id number] in the past and states that she has only had relief with prune juice that she has at home which she did try twice since yesterday without improvement. Given mag citrate yesterday and initially was going to order this morning until she developed abdominal discomfort and hypoactive bowel sounds and a KUB was obtained KUB shows a likely ileus Given 1 g mag IV to help with stimulation Patient was made n.p.o. except chips and sips Patient was placed on gentle IV fluids while she is n.p.o. and we will perform serial abdominal examinations as needed No need for NG tube at this time due to no reported nausea or vomiting Repeat imaging for any worsening symptoms and consult general surgery if needed Suppository as needed. Suppository was given via Dulcolax rectally this afternoon to stimulate bowel movement and nursing reported feeling stool in her rectal area Discussed that she should continue to ambulate frequently to help stimulate bowels and limit pain medications except when needed Continue to monitor Of note was notified by nursing this evening that patient did have 2 bowel movements since the suppository and n.p.o. status We will continue n.p.o. for now to ensure no issues as patient did note she was not hungry and typically only eats 2 meals daily however if patient continues to pass gas and abdominal pain is controlled she may start some clears this evening and we will advance in the morning as tolerated (2) Neurogenic claudication due to lumbar spinal stenosis: POD#2 s/p extensive lumbar decompression with Dr. Hale on 12/19. * Surgery as follows: * #1 lumbar decompression with bilateral medial facetectomies and foraminotomies L1-2, L2-3, L3-4 and L4-5.#2- posterior spinal fusion L1-2, L2-3, L3-4 and L4- 5. #3 placed posterior segmental instrumentation L1-L5. #4- interbody fusion L4-5. * Pre-op h/h 15.1/44 * EBL 950cc from operative report (in addition to SYLVESTER output recorded as 720cc + 445cc --> only 100cc thus far today) * h/h dropped to 10.9/33.5 post operatively -- acute blood loss anemia from blood loss from surgery as well as dilutional from IVF as ordered additional 1L by following surgery evening for expected volume depletion from blood loss * No further white count * Hemoglobin is stable at 10 despite IV fluids however SYLVESTER output is decreasing. Please note that the patient will be placed on gentle IV fluids for postoperative ileus and expect some dilution on morning labs * Encourage use of incentive spirometer as she does have bibasilar crackles and is not taking deep breath due to back pain and current abdominal discomfort * Patient made n.p.o. except chips and sips for now * Planning on home health at discharge per primary service * Continue to monitor daily labs to ensure stability (3) Prediabetes: * Last HbA1C was 6.2%. 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 Cortez for further discussion about this already * Blood sugars have crept up since being on dexamethasone and we will start blood sugars AC/at bedtime and sliding scale as needed * Continue to monitor (4) Mitral valve prolapse: * Follows with Dr Sorenson in [place]. * Most recent echo in 2020 without significant regurgitation. 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 (5) Hyperlipidemia: * Most recent lipid panel Sep 2020 - trig 223, cholesterol 187, LDL 100, HDL 42 * Continue Lipitor 40mg HS * Consider adding ezetimibe as outpatient for triglycerides -- defer to PCP at outpt f/u (6) Obesity: * BMI 37.6 * Encourage dietary changes/increased activity/healthy lifestyle (7) Blood loss: * Operative record indicates 950cc of blood loss. * UO acceptable. BP stable. H/h drop as above Constipation * Has been dealing with constipation at home. * Likely related to pain medication * No help with miralax or colace per her and using prune juice at home -- offered what we have here but she would rather have BF bring in tomorrow if needed * Agreeable to try mag citrate today * Check TSH in AM with l/e edemawithin normal limits * She ended up getting mag citrate without relief and prune juice. She required a Dulcolax suppository today and KUB as above showed a likely ileus and patient was made n.p.o. for now except chips and sips and notes that she did have increased gas since that time. * Continue to monitor (8) DVT prophylaxis: * SCDs, anurag mckinney (discussed continuing stockings at home to prevent swelling) * Chemical means contraindicated due to nature of her lumbar surgery. Plans on home health at d/c Thank you for the consult. Medicine will follow along. (9) Acute blood loss anemia: Admission and Anticipated Discharge Date Admission Date: December 19, 2020 Subjective Patient evaluated this afternoon. She has been up working with therapy this morning and feeling okay however she did not pass any gas overnight into this morning and developed worsening abd ominal pain. She had been utilizing prune juice several times over the night into this morning without bowel movement. She denies nausea and was able to eat her breakfast this morning. She states she was seen by Dr. Hale this afternoon and he thought everything looked well. We did obtain a KUB this morning but did show postoperative ileus and discussed that with patient we will put her on bowel rest and nothing by mouth except chips and sips with medicines. She did receive a suppository this afternoon and she does note that she has been having increasing gas since that time. Discussed an enema however she has a bad experience with this in the past and would like to avoid this as well as an NG tube at this time. Discussed that this did happen sometimes after surgery and that ambulation bowel rest typically is our treatment and that it would resolve over time. Patient states that she would like to rest currently due to just getting back from the bathroom and not getting good sleep. She denies fevers, chills, chest pain, shortness of breath,. Abdominal pain is more generalized. She still is fearful for ambulation and is requiring assistance and will continue to be monitored overnight. Questions and concerns answered at this time. She does continue to remain fixated on extensiveness of surgery and her worries about not being able to walk however her strength testing is good. She is very worried about this postoperative ileus and believes that this would require additional intervention. Reassured the patient that this does happen sometimes postoperatively and that it usually resolves with bowel rest. Patient did seem very thankful at the end of our conversation for emotional support during this time. Review of Systems Review of Systems: All systems reviewed & are unremarkable except as noted in HPI & below Physical Exam Constitutional: + obese, cooperative and comfortable; no acute distress and no altered mental status labile affect Eyes: PERRL ENMT: external ear and nose normal, oropharynx normal Neck: trachea midline, no thyromegaly Respiratory: normal respiratory effort; no respiratory distress and no labored breathing Auscultation: + diminished lung sounds and + crackles (bibasilar); no wheezes Cardiovascular: Rate/Rhythm: regular rate and regular rhythm Heart Sounds: normal S1, normal S2 and + murmur (MVP) Vessels: posterior tibial pulses present and dorsalis pedis pulses present; no JVD Extremities: + edema (1+ b/l LEs ) Gastrointestinal (Abdomen): normal bowel sounds, soft, nontender, no hepatosplenomegaly Musculoskeletal: no cyanosis or clubbing, extremities motor strength 5/5 (SYLVESTER drain with scant bloody drainage. Dressing c/d/i. Calves non-tender, NVI) Skin: no rashes, warm and dry Neurologic: deep tendon reflexes 2+ bilaterally and moves all extremities; no focal motor deficits Psychiatric: Orientation: alert and oriented x 3 Affect: + anxious affect, + tearful affect and + labile affect Lymphatic: no cervical lymphadenopathy Results & Data Results & Data ([facility]) Vital Signs (Past 12 Hours) Vital Signs Temp Pulse Resp BP Pulse Ox 12/21/20 06:12 37.1 C 88 17 150/81 H 92 Laboratory Results 12/21/20 12/21/20 12/21/20 Range/Units 12:19 07:28 07:28 WBC (4.8-10.8) K/uL RBC (4.2-5.4) M/uL Hgb (12.0-16.0) g/dL Hct (37-47) % MCV (80-100) fL MCH (25-34) pg MCHC (32-36) g/dL RDW Std Deviation (36.4-46.3) fL RDW Coeff of Julieth (11.5-14.5) % Plt Count (130-400) K/uL MPV (7.4-10.4) fL Immature Gran % (Auto) % Neut % (Auto) % Lymph % (Auto) % Turner % (Auto) % Eos % (Auto) % Baso % (Auto) % Neut # (Auto) (1.4-6.5) K/uL Lymph # (Auto) (1.2-3.4) K/uL Turner # (Auto) (0.11-0.59) K/uL Eos # (Auto) (0-0.5) K/uL Baso # (Auto) (0-0.2) K/uL Immature Gran # (Auto) (0.00-0.02) K/uL Sodium 138 (136-145) mmol/L Potassium 3.6 (3.5-5.1) mmol/L Chloride 104 (98-107) mmol/L Carbon Dioxide 28 (21-32) mmol/L Anion Gap 6.0 (3-11) BUN 15 (7-18) mg/dl Creatinine 0.89 (0.6-1.2) mg/dl Est Cr Clr Drug Dosing 71.3 ml/min Est GFR ( Amer) 75.6 Est GFR (Non-Af Amer) 65.2 BUN/Creatinine Ratio 16.6 (10-20) Glucose 173 H (70-99) mg/dl POC Glucose 193 H (70-99) mg/dl Calcium 7.9 L (8.5-10.1) mg/dl Albumin 3.2 L (3.4-5.0) gm/dl TSH 2.030 (0.300-4.500) uIu/ml 12/21/20 12/21/20 12/20/20 Range/Units 07:28 07:05 20:41 WBC 8.47 (4.8-10.8) K/uL RBC 3.22 L (4.2-5.4) M/uL Hgb 10.0 L (12.0-16.0) g/dL Hct 30.6 L (37-47) % MCV 95.0 (80-100) fL MCH 31.1 (25-34) pg MCHC 32.7 (32-36) g/dL RDW Std Deviation 44.8 (36.4-46.3) fL RDW Coeff of Julieth 13.0 (11.5-14.5) % Plt Count 132 (130-400) K/uL MPV 9.3 (7.4-10.4) fL Immature Gran % (Auto) 0.6 % Neut % (Auto) 68.6 % Lymph % (Auto) 21.6 % Turner % (Auto) 8.7 % Eos % (Auto) 0.4 % Baso % (Auto) 0.1 % Neut # (Auto) 5.81 (1.4-6.5) K/uL Lymph # (Auto) 1.83 (1.2-3.4) K/uL Turner # (Auto) 0.74 H (0.11-0.59) K/uL Eos # (Auto) 0.03 (0-0.5) K/uL Baso # (Auto) 0.01 (0-0.2) K/uL Immature Gran # (Auto) 0.05 H (0.00-0.02) K/uL Sodium (136-145) mmol/L Potassium (3.5-5.1) mmol/L Chloride (98-107) mmol/L Carbon Dioxide (21-32) mmol/L Anion Gap (3-11) BUN (7-18) mg/dl Creatinine (0.6-1.2) mg/dl Est Cr Clr Drug Dosing ml/min Est GFR ( Amer) Est GFR (Non-Af Amer) BUN/Creatinine Ratio (10-20) Glucose (70-99) mg/dl POC Glucose 152 H 154 H (70-99) mg/dl Calcium (8.5-10.1) mg/dl Albumin (3.4-5.0) gm/dl TSH (0.300-4.500) uIu/ml 12/20/20 Range/Units 17:12 WBC (4.8-10.8) K/uL RBC (4.2-5.4) M/uL Hgb (12.0-16.0) g/dL Hct (37-47) % MCV (80-100) fL MCH (25-34) pg MCHC (32-36) g/dL RDW Std Deviation (36.4-46.3) fL RDW Coeff of Julieth (11.5-14.5) % Plt Count (130-400) K/uL MPV (7.4-10.4) fL Immature Gran % (Auto) % Neut % (Auto) % Lymph % (Auto) % Turner % (Auto) % Eos % (Auto) % Baso % (Auto) % Neut # (Auto) (1.4-6.5) K/uL Lymph # (Auto) (1.2-3.4) K/uL Turner # (Auto) (0.11-0.59) K/uL Eos # (Auto) (0-0.5) K/uL Baso # (Auto) (0-0.2) K/uL Immature Gran # (Auto) (0.00-0.02) K/uL Sodium (136-145) mmol/L Potassium (3.5-5.1) mmol/L Chloride (98-107) mmol/L Carbon Dioxide (21-32) mmol/L Anion Gap (3-11) BUN (7-18) mg/dl Creatinine (0.6-1.2) mg/dl Est Cr Clr Drug Dosing ml/min Est GFR ( Amer) Est GFR (Non-Af Amer) BUN/Creatinine Ratio (10-20) Glucose (70-99) mg/dl POC Glucose 143 H (70-99) mg/dl Calcium (8.5-10.1) mg/dl Albumin (3.4-5.0) gm/dl TSH (0.300-4.500) uIu/ml Diagnostic Findings KUB HISTORY: constipation COMPARISON: None. FINDINGS: Dilated gas-filled loops of large and small bowel likely representing an ileus. There is gas within the rectum. Surgical drain overlying the lumbar spinal fusion hardware. No renal calculi. No ureteral calculi. No pneumoperitoneum or pneumatosis. IMPRESSION: Dilated gas-filled loops of large and small bowel likely representing an ileus. PG Care Time/CCT Total # of Minutes Spent Total Time Spent with Patient: Total time spent is greater than 50% in coordination of care (as documented) at patient's floor/unit and/or counseling patient: Coding Level of Care Code 62501 Subseq Hosp Care Lvl 3 Diagnoses Postoperative ileus K91.89; K56.7 Neurogenic claudication due to lumbar spinal stenosis M48.062 Prediabetes R73.03 Mitral valve prolapse I34.1 Hyperlipidemia E78.5 Obesity E66.9 Blood loss R58 DVT prophylaxis Z29.9 Acute blood loss anemia D62
[2020-12-21] MEDS ORDERED: MAGNESIUM CITRATE 296 ML/BTL PO STA (13:55)
--- NOTE | 2020-12-21 14:08 | Orthopedic Progress Note ---
Date of Service December 21, 2020 Assessment & Plan (1) Neurogenic claudication due to lumbar spinal stenosis: Admission and Anticipated Discharge Date Admission Date: December 19, 2020 Stable continue physical therapy monitor SYLVESTER operatively discharge home this weekend with home health. Subjective Back pain controlled leg pain markedly improved Physical Exam Physical Exam: Patient is in a chair at the bedside. Is good strength testing. Peers comfortable. Results & Data ([facility]) Vital Signs (Past 12 Hours) Vital Signs Temp Pulse Resp BP Pulse Ox 12/21/20 06:12 37.1 C 88 17 150/81 H 92
--- NOTE | 2020-12-21 14:26 | XRay Report ---
KUB HISTORY: constipation COMPARISON: None. FINDINGS: Dilated gas-filled loops of large and small bowel likely representing an ileus. There is ga s within the rectum. Surgical drain overlying the lumbar spinal fusion hardware. No renal calculi. N o ureteral calculi. No pneumoperitoneum or pneumatosis. IMPRESSION: Dilated gas-filled loops of large and small bowel likely representing an ileus. ACT 112: Negative or not required by law. Electronically signed by: Salvador Grant M.D. 12/21/2020 2:24 PM
[2020-12-21] MEDS: SODIUM CHLORIDE 0.9% 1000ML 1,000 ML IV SCH (14:48)
[2020-12-21] MEDS ORDERED: MAGNESIUM SULFATE / D5W 1 GM/100 ML BAG IV ONE (15:00)
[2020-12-21] MEDS ORDERED: GLUCAGON FOR INJ 1 MG VIAL SQ PRN (17:13)
[2020-12-21] MEDS ORDERED: GLUCOSE 10 TABS/TUBE PO PRN (17:13)
[2020-12-21] MEDS ORDERED: CARBOHYDRATES FOR HYPOGLYCEMIA PO PRN (17:13)
[2020-12-21] MEDS ORDERED: DEXTROSE 50% 50 ML SYRINGE IV PRN (17:13)
[2020-12-21] MEDS ORDERED: GLUCOSE 40% GEL 15 GM TUBE PO PRN (17:13)
[2020-12-21] MEDS ORDERED: INSULIN ASPART 100 UNITS/ML 3 ML PEN SC SCH (17:45)
[2020-12-21] MEDS ORDERED: Nursing to Pharmacy Communication SCH (19:15)
[2020-12-21] MEDS: DOCUSATE SODIUM/SENNA 50/8.6MG TAB PO SCH (22:42)
[2020-12-22] MEDS: INSULIN ASPART 100 UNITS/ML 3 ML PEN SC SCH ×5 (00:18→21:47)
[2020-12-22] MEDS: SODIUM CHLORIDE 0.9% 1000ML 1,000 ML IV SCH (04:38)
[2020-12-22] MEDS: dexAMETHasone 8 MG in SYRINGE 0 ML IV SCH (07:44)
--- NOTE | 2020-12-22 08:38 | Hospitalist Progress Note ---
Date of Service December 22, 2020 Assessment & Plan (1) Postoperative ileus: RESOLVED -- PATIENT WITH LARGE BM EVENING 12/22 Patient stated she had not moved her bowels or passed gas since before surgery. She has tried MiraLAX and Colace ivyi-nzu-vyybycc in the past and states that she has only had relief with prune juice that she has at home which she did try twice since yesterday without improvement. Given mag citrate yesterday and initially was going to order this morning until she developed abdominal discomfort and hypoactive bowel sounds and a KUB was obtained KUB showed a likely ileus Given 1 g mag IV to help with stimulation Patient was made n.p.o. except chips and sips Did not require NGT Patient was placed on gentle IV fluids while she is n.p.o. and we will perform serial abdominal examinations as needed --> will give liquids for this morning and advance as tolerated as long as continues to pass gas/move bowels/abd discomfort improved Of note was notified by nursing evening 12/21 that patient did have 2 bowel movements since the suppository and n.p.o. status Tolerated clears for breakfast --> no abd pain. Continues to pass gas. + bowel sounds Will advance diet for lunch Continue prune juice/bowel regimen with suppository prn Discussed that she should continue to ambulate frequently to help stimulate bowels and limit pain medications except when needed Continue to monitor (2) Neurogenic claudication due to lumbar spinal stenosis: POD#3 s/p extensive lumbar decompression with Dr. Hale on 12/19. * Surgery as follows: * #1 lumbar decompression with bilateral medial facetectomies and foraminotomies L1-2, L2-3, L3-4 and L4-5.#2- posterior spinal fusion L1-2, L2-3, L3-4 and L4- 5. #3 placed posterior segmental instrumentation L1-L5. #4- interbody fusion L4-5. * Pre-op h/h 15.1/44 * EBL 950cc from operative report (in addition to SYLVESTER output recorded as 720cc + 445cc +210cc) * h/h dropped to 10.9/33.5 post operatively -- acute blood loss anemia from blood loss from surgery as well as dilutional from IVF as ordered additional 1L by following surgery evening for expected volume depletion from blood loss * H/h actually improved despite being on IVF yesterday -- 10.02/11 * Hemoglobin is stable at 10 despite IV fluids however SYLVESTER output is decreasing. Please note that the patient will be placed on gentle IV fluids for postoperative ileus and expect some dilution on morning labs * Encourage use of incentive spirometer as she does have bibasilar crackles and is not taking deep breath due to back pain and current abdominal discomfort * --> RESOLVED * Planning on home health at discharge per primary service -- already arranged (3) Prediabetes: * Last HbA1C was 6.2%. * Got dexamethasone perioperatively so suspect increase BSGs for today * Diabetic diet, nutrition consulted for DM teaching as well as certified lactation educator * Has follow up appt with Dr. Cortez for further discussion about this already * Blood sugars have crept up since being on dexamethasone and we will start blood sugars AC/at bedtime and sliding scale as needed * Continue to monitor (4) Mitral valve prolapse: * Follows with Dr Sorenson in [place]. * Most recent echo in 2020 without significant regurgitation. * Holding lasix post-operatively -- on 40mg PO PRODUCTION OFFICER --> resumed for bilateral lower extremity edema which has improved on examination today * Stable. (5) Hyperlipidemia: * Most recent lipid panel Sep 2020 - trig 223, cholesterol 187, LDL 100, HDL 42 * Continue Lipitor 40mg HS * Consider adding ezetimibe as outpatient for triglycerides -- defer to PCP at outpt f/u (6) Obesity: * BMI 37.6 * Encourage dietary changes/increased activity/healthy lifestyle (7) Blood loss: * Operative record indicates 950cc of blood loss. * UO acceptable. BP stable. H/h drop as above Constipation * Has been dealing with constipation at home. TSH wnl. * Likely related to pain medication * Continue suppositories/prune juice/ambulation as above under Ileus Continues to pass gas. +BS. No pain (8) DVT prophylaxis: * SCDs, anurag mckinney (discussed continuing stockings at home to prevent swelling) * Chemical means contraindicated due to nature of her lumbar surgery. Plans on home health at d/c Thank you for the consult. Medicine will sign off at this time. Please call with any questions/concerns. (9) Acute blood loss anemia: Admission and Anticipated Discharge Date Admission Date: December 19, 2020 Subjective Patient seen this morning. Up in chair. Abdominal pain much better. Had BMs last night and continues to pass gas. Slightly "hangry" this morning and only had clear liquids but discussed we were letting her bowels rest but will advance for lunch. Plans on staying overnight. Home health to be set up for after d/c-- will check with CM. No fever, chills, chest pain, shortness of breath, abdominal pain, nausea or vomiting. Review of Systems Review of Systems: All systems reviewed & are unremarkable except as noted in HPI & below Physical Exam Constitutional: + obese, cooperative and comfortable; no acute distress and no altered mental status Eyes: PERRL ENMT: external ear and nose normal, oropharynx normal Neck: trachea midline, no thyromegaly Respiratory: normal respiratory effort; no respiratory distress and no labored breathing Auscultation: + diminished lung sounds; no crackles and no wheezes Cardiovascular: Rate/Rhythm: regular rate and regular rhythm Heart Sounds: normal S1, normal S2 and + murmur (MVP) Vessels: posterior tibial pulses present and dorsalis pedis pulses present; no JVD Extremities: + edema (1+ b/l LEs -- IMPROVED) Gastrointestinal (Abdomen): normal bowel sounds, soft, nontender, no hepatosplenomegaly Musculoskeletal: no cyanosis or clubbing, extremities motor strength 5/5 (SYLVESTER drain with scant bloody drainage. Dressing c/d/i. Calves non-tender, NVI) Skin: no rashes, warm and dry Neurologic: deep tendon reflexes 2+ bilaterally and moves all extremities; no focal motor deficits Psychiatric: Orientation: alert and oriented x 3 Affect: + labile affect Lymphatic: no cervical lymphadenopathy Results & Data Results & Data ([facility]) Vital Signs (Past 12 Hours) Vital Signs Temp Pulse Resp BP Pulse Ox 12/22/20 07:58 37.1 C 66 18 137/74 99 12/21/20 23:04 37.0 C 79 14 145/79 H 92 Laboratory Results 12/22/20 12/22/20 12/22/20 Range/Units 12:08 11:46 08:44 WBC (4.8-10.8) K/uL RBC (4.2-5.4) M/uL Hgb (12.0-16.0) g/dL Hct (37-47) % MCV (80-100) fL MCH (25-34) pg MCHC (32-36) g/dL RDW Std Deviation (36.4-46.3) fL RDW Coeff of Julieth (11.5-14.5) % Plt Count (130-400) K/uL MPV (7.4-10.4) fL Immature Gran % (Auto) % Neut % (Auto) % Lymph % (Auto) % [place] % (Auto) % Eos % (Auto) % Baso % (Auto) % Neut # (Auto) (1.4-6.5) K/uL Lymph # (Auto) (1.2-3.4) K/uL [place] # (Auto) (0.11-0.59) K/uL Eos # (Auto) (0-0.5) K/uL Baso # (Auto) (0-0.2) K/uL Immature Gran # (Auto) (0.00-0.02) K/uL Absolute Nucleated RBC (0-0) K/uL Nucleated RBC % (auto) % Sodium 141 (136-145) mmol/L Potassium 4.0 (3.5-5.1) mmol/L Chloride 107 (98-107) mmol/L Carbon Dioxide 27 (21-32) mmol/L Anion Gap 7.0 (3-11) BUN 14 (7-18) mg/dl Creatinine 0.86 (0.6-1.2) mg/dl Est Cr Clr Drug Dosing 73.7 ml/min Est GFR ( Amer) 78.8 Est GFR (Non-Af Amer) 68.0 BUN/Creatinine Ratio 16.5 (10-20) Glucose 113 H (70-99) mg/dl POC Glucose 164 H (70-99) mg/dl Calcium 8.8 (8.5-10.1) mg/dl Total Bilirubin 0.6 (0.2-1) mg/dl AST 28 (15-37) U/L ALT 27 (12-78) U/L Alkaline Phosphatase 68 (45-117) U/L Total Protein 7.0 (6.4-8.2) gm/dl Albumin 3.3 L (3.4-5.0) gm/dl Globulin 3.7 (2.5-4.0) gm/dl Albumin/Globulin Ratio 0.9 (0.9-2) Specimen Hemolysis Urine Color Yellow Urine Appearance Clear (Clear) Urine pH 6.5 (4.5-7.5) Ur Specific Clements 1.019 (1.000-1.030) Urine Protein Negative (Negative) Urine Glucose (UA) Negative (Negative) Urine Ketones Negative (Negative) Urine Blood Negative (Negative) Urine Nitrite Negative (Negative) Urine Bilirubin Negative (Negative) Urine Urobilinogen Negative (Negative) Ur Leukocyte Esterase Negative (Negative) Crossmatch 12/22/20 12/22/20 12/22/20 Range/Units 08:44 08:17 05:55 WBC 10.88 H (4.8-10.8) K/uL RBC 3.34 L (4.2-5.4) M/uL Hgb 10.5 L (12.0-16.0) g/dL Hct 31.2 L (37-47) % MCV 93.4 (80-100) fL MCH 31.4 (25-34) pg MCHC 33.7 (32-36) g/dL RDW Std Deviation 44.0 (36.4-46.3) fL RDW Coeff of Julieth 13.0 (11.5-14.5) % Plt Count 178 (130-400) K/uL MPV 9.5 (7.4-10.4) fL Immature Gran % (Auto) 0.6 % Neut % (Auto) 70.4 % Lymph % (Auto) 18.2 % [place] % (Auto) 10.5 % Eos % (Auto) 0.2 % Baso % (Auto) 0.1 % Neut # (Auto) 7.60 H (1.4-6.5) K/uL Lymph # (Auto) 1.96 (1.2-3.4) K/uL [place] # (Auto) 1.13 H (0.11-0.59) K/uL Eos # (Auto) 0.02 (0-0.5) K/uL Baso # (Auto) 0.01 (0-0.2) K/uL Immature Gran # (Auto) 0.07 H (0.00-0.02) K/uL Absolute Nucleated RBC 0.05 H (0-0) K/uL Nucleated RBC % (auto) 0.5 % Sodium (136-145) mmol/L Potassium (3.5-5.1) mmol/L Chloride (98-107) mmol/L Carbon Dioxide (21-32) mmol/L Anion Gap (3-11) BUN (7-18) mg/dl Creatinine (0.6-1.2) mg/dl Est Cr Clr Drug Dosing ml/min Est GFR ( Amer) Est GFR (Non-Af Amer) BUN/Creatinine Ratio (10-20) Glucose (70-99) mg/dl POC Glucose 116 H 164 H (70-99) mg/dl Calcium (8.5-10.1) mg/dl Total Bilirubin (0.2-1) mg/dl AST (15-37) U/L ALT (12-78) U/L Alkaline Phosphatase (45-117) U/L Total Protein (6.4-8.2) gm/dl Albumin (3.4-5.0) gm/dl Globulin (2.5-4.0) gm/dl Albumin/Globulin Ratio (0.9-2) Specimen Hemolysis Urine Color Urine Appearance (Clear) Urine pH (4.5-7.5) Ur Specific Clements (1.000-1.030) Urine Protein (Negative) Urine Glucose (UA) (Negative) Urine Ketones (Negative) Urine Blood (Negative) Urine Nitrite (Negative) Urine Bilirubin (Negative) Urine Urobilinogen (Negative) Ur Leukocyte Esterase (Negative) Crossmatch 12/21/20 12/21/20 12/19/20 Range/Units 23:49 17:06 06:40 WBC (4.8-10.8) K/uL RBC (4.2-5.4) M/uL Hgb (12.0-16.0) g/dL Hct (37-47) % MCV (80-100) fL MCH (25-34) pg MCHC (32-36) g/dL RDW Std Deviation (36.4-46.3) fL RDW Coeff of Julieth (11.5-14.5) % Plt Count (130-400) K/uL MPV (7.4-10.4) fL Immature Gran % (Auto) % Neut % (Auto) % Lymph % (Auto) % [place] % (Auto) % Eos % (Auto) % Baso % (Auto) % Neut # (Auto) (1.4-6.5) K/uL Lymph # (Auto) (1.2-3.4) K/uL [place] # (Auto) (0.11-0.59) K/uL Eos # (Auto) (0-0.5) K/uL Baso # (Auto) (0-0.2) K/uL Immature Gran # (Auto) (0.00-0.02) K/uL Absolute Nucleated RBC (0-0) K/uL Nucleated RBC % (auto) % Sodium (136-145) mmol/L Potassium (3.5-5.1) mmol/L Chloride (98-107) mmol/L Carbon Dioxide (21-32) mmol/L Anion Gap (3-11) BUN (7-18) mg/dl Creatinine (0.6-1.2) mg/dl Est Cr Clr Drug Dosing ml/min Est GFR ( Amer) Est GFR (Non-Af Amer) BUN/Creatinine Ratio (10-20) Glucose (70-99) mg/dl POC Glucose 157 H 209 H (70-99) mg/dl Calcium (8.5-10.1) mg/dl Total Bilirubin (0.2-1) mg/dl AST (15-37) U/L ALT (12-78) U/L Alkaline Phosphatase (45-117) U/L Total Protein (6.4-8.2) gm/dl Albumin (3.4-5.0) gm/dl Globulin (2.5-4.0) gm/dl Albumin/Globulin Ratio (0.9-2) Specimen Hemolysis Urine Color Urine Appearance (Clear) Urine pH (4.5-7.5) Ur Specific Clements (1.000-1.030) Urine Protein (Negative) Urine Glucose (UA) (Negative) Urine Ketones (Negative) Urine Blood (Negative) Urine Nitrite (Negative) Urine Bilirubin (Negative) Urine Urobilinogen (Negative) Ur Leukocyte Esterase (Negative) Crossmatch See Detail PG Care Time/CCT Total # of Minutes Spent Total Time Spent with Patient: Total time spent is greater than 50% in coordination of care (as documented) at patient's floor/unit and/or counseling patient: Coding Level of Care Code 66901 Subseq Hosp Care Lvl 3 Diagnoses Postoperative ileus K91.89; K56.7 Neurogenic claudication due to lumbar spinal stenosis M48.062 Prediabetes R73.03 Mitral valve prolapse I34.1 Hyperlipidemia E78.5 Obesity E66.9 Blood loss R58 DVT prophylaxis Z29.9 Acute blood loss anemia D62
--- NOTE | 2020-12-22 08:39 | Orthopedic Progress Note ---
Date of Service December 22, 2020 Assessment & Plan (1) Neurogenic claudication due to lumbar spinal stenosis: Admission and Anticipated Discharge Date Admission Date: December 19, 2020 This time we will continue physical therapy monitor SYLVESTER output hopefully advance her diet today and perhaps discharge home tomorrow. Subjective Patient states her back pain is controlled leg pain improved. She denies any nausea or vomiting this morning. Denies any abdominal discomfort. Physical Exam Physical Exam: Patient is in the chair at the bedside. She is comfortable. Is good strength testing. Results & Data ([facility]) Vital Signs (Past 12 Hours) Vital Signs Temp Pulse Resp BP Pulse Ox 12/22/20 07:58 37.1 C 66 18 137/74 99 12/21/20 23:04 37.0 C 79 14 145/79 H 92
[2020-12-22 09:22] LABS: Hematocrit (blood only) 31.2 % (37-47); Hemoglobin 10.5 g/dL (12.0-16.0); Mean Corpuscular Hemoglobin 31.4 pg (25-34); Mean Corpuscular Hgb Conc 33.7 g/dL (32-36); Mean Corpuscular Volume 93.4 fL (80-100); Mean Platelet Volume 9.5 fL (7.4-10.4); Nucleated RBC # (auto) 0.05 K/uL (0-0); Nucleated RBC % (auto) 0.5 %; Platelet Count 178 K/uL (130-400); Red Blood Count 3.34 M/uL (4.2-5.4); White Blood Count 10.88 K/uL (4.8-10.8)
[2020-12-22 09:43] LABS: Albumin Globulin Ratio 0.9 (0.9-2); Albumin Level 3.3 gm/dl (3.4-5.0); BUN Creatinine Ratio 16.5 (10-20); Bilirubin,Total 0.6 mg/dl (0.2-1); Calcium 8.8 mg/dl (8.5-10.1); Creatinine Clr Calc Pharmacy 73.7 ml/min; Est GFR (African American) 78.8; Globulin 3.7 gm/dl (2.5-4.0)
[2020-12-22] MEDS ORDERED: Nursing to Pharmacy Communication SCH (09:45)
[2020-12-22 10:22] LABS: Basophils # (auto) 0.01 K/uL (0-0.2); Basophils % (auto) 0.1 %; Eosinophils # (auto) 0.02 K/uL (0-0.5); Eosinophils % (auto) 0.2 %; Immature Granulocytes # (auto) 0.07 K/uL (0.00-0.02); Immature Granulocytes % (auto) 0.6 %; Lymphocytes # (auto) 1.96 K/uL (1.2-3.4); Lymphocytes % (auto) 18.2 %; Monocytes # (auto) 1.13 K/uL (0.11-0.59); Monocytes % (auto) 10.5 %; Neutrophils % (auto) 70.4 %
[2020-12-22 11:57] LABS: Appearance Urine Clear (Clear); Bilirubin Urine Negative (Negative); Blood Urine Negative (Negative); Color Urine Yellow; Glucose Urine UA Negative (Negative); Ketones Urine Negative (Negative); Leukocyte Esterase Urine Negative (Negative); Nitrite Urine Negative (Negative); Protein Urine Negative (Negative); Specific Gravity Urine 1.019 (1.000-1.030); Urobilinogen Urine Negative (Negative); pH Urine 6.5 (4.5-7.5)
[2020-12-22] MEDS: DOCUSATE SODIUM/SENNA 50/8.6MG TAB PO SCH (21:47)
[2020-12-22] MEDS: ATORVASTATIN 40 MG TAB PO SCH (22:09)
[2020-12-23] MEDS: dexAMETHasone 8 MG in SYRINGE 0 ML IV SCH (07:52)
[2020-12-23] MEDS: INSULIN ASPART 100 UNITS/ML 3 ML PEN SC SCH ×2 (08:29→12:47)
--- NOTE | 2020-12-24 10:42 | Discharge Summary ---
Date of Service December 24, 2020 Admission HPI Per Admitting Provider This is a 70-year-old female who presents with chronic persistent back and bilateral leg pain. After failing course of nonoperative care is here for surgical invention. Principal Diagnosis Lumbar spinal stenosis with neurogenic claudication Discharge Data Allergies Allergy/AdvReac Type Severity Reaction Status Date / Time Penicillins Allergy Mild blotches Uncoded 12/19/20 06:43 on skin Consultations 12/19/20 13:01 Consult Hospitalist Routine Procedures Performed Operation Date: 12/19/20 07:45 Actual Procedures p L1-L5 Decompression and Fusion with Insertion of Interbody, Application of Bone Morphogenetic Protein, Spinal Cord Monitoring(Not Applicable) - Naveed Hale DO Ordered Studies 12/19/20 07:45 FL fluoroscopy <1hr Routine FL lumbar spine 2-3V Routine Hospital Course (1) Neurogenic claudication due to lumbar spinal stenosis: Patient underwent multilevel lumbar compression fusion trial as well as leg orthopedic for postoperative postop and when she was up with physical therapy progressed throughout her hospital stay. Bowels began working appropriately. SYLVESTER drain decreasing appropriately. Excellent strength testing. Subsequent discharge home with home health. Discharge orders instructions from the chart for further review. Total Time Total Time Spent Total Time Spent (In Minutes): 20 minutes Discharge Plan Discharge Items Patient Disposition: Home - Home Health Services Reason For Visit: Spinal Stenosis, Lumbar Region with Neurogenic Cla Discharge Diagnosis: Lumbar spinal stenosis with neurogenic claudication Activity: As commented below Non-emergency contact: Primary Care Provider Call non-emergency contact if: you have any medication questions Follow-up/Referrals: Christina Cortez DO [Primary Care Provider] - Diet: Regular Addtl Attending Provider Instructions: ACTIVITY RECOMMENDATIONS: SELF CARE INSTRUCTIONS AFTER THORACIC/LUMBAR FUSIONS 1. You may walk to your tolerance. It is good exercise for your legs and back. Expect some back and intermittent leg aches and pains. 2. You may perform "counter-top" level activities (make a sandwich, alexa with a project, etc.). 3. No bending or lifting of more than 10 pounds or back twisting of any nature (roll like a log when turning in bed). 4. You may ride in a car for 20-30 minutes at a time. No driving until after your first visit with your doctor. 5. Frequent changes of position and restricting sitting to 30 minutes at a time will help limit the amount of back spasms and stiffness you may experience. 6. You may discontinue the use of ambulatory aids (cane, crutches, etc.) once your strength and confidence allow. 7. You may stockroom inventory clerk the shower and let water strike your incision when you arrive home at least once daily. Do not take a tub bath, sit in a hot tub or go into a swimming pool until after your first recheck in the office. SPECIAL CARE INSTRUCTIONS: VERY IMPORTANT TO READ AND REVIEW A. Your surgical incision has been closed with a cosmetic suture under the skin that will dissolve in about 6 weeks. In 14 days, you can use a pair of clean scissors and cut the suture that is left outside of the skin at the ends of your incision. 1. The small skin tapes can be removed 7 days after surgery if they have not fallen off by that point. 2. You may keep the wound open to air as much as possible to promote healing after post-op day number 5 unless told otherwise by your doctor. 3. If you think the wound looks like it is becoming infected (redness or worsening drainage) and/or you are experiencing fever, chill or worsening back pain and muscle spasms, contact the office so that we may evaluate you as soon as possible. B. Complications are uncommon, but please contact us if you have any signs or symptoms of: 1. wound infection (fever higher than 102.5 degrees F, redness, separation of wound, drainage, or increasing pain from the incision) 2. blood clots in legs (pain, swelling, redness and warmth in legs) 3. urinary tract infection (fever higher than 102.5 degrees F, burning upon urination or increased frequency of urination) 4. nerve problems (inability to walk on your toes or heels, numbness, loss of bowel or bladder control) 5. any other symptoms that concern you C. Please call the office at if you have any concerns or ques tions about your operation or recovery. D. No smoking! Smoking drastically decreases the chance of a solid fusion. E. Do not take any anti-inflammatory medications (Indocin, Advil, Motrin, Aspirin, Naprosyn, etc.) as these may inhibit the chance of a solid fusion. Tylenol is okay to take for pain. MANAGING PAIN AFTER SPINAL SURGERY 1. Narcotic medication is intended for short-term use and will be provided for surgical pain. Surgical pain usually lasts for a period of 4-6 weeks. Narcotic medication includes Percocet, Vicodin, Darvocet, Tylenol #3 or Lortab. 2. Longer-term pain is more appropriately treated with non-narcotic medication such as Tylenol ES. 3. Muscle spasm is not appropriately treated with narcotics. Muscle relaxers such as Soma, Flexeril or Skelaxin can be used along with Tylenol ES. 4. Remember that we all live with some "aches and pains". This is not unusual or uncommon after an injury or as we get older. a. Back pain is expected and may include muscle spasms for 4 to 6 weeks after surgery. The pain should gradually improve. If the pain worsens for no apparent reason, please contact the office. b. Intermittent leg pain may also be experienced and should not be concerned about unless it worsens for no apparent reason. If so, please contact the office. 5. We will provide appropriate medication within the normal guidelines of their prescribed use. We will also be very cautious and aware of potential abuse and extended duration of patients' medication needs. a. Pain medications are for your comfort and to assist with sleep and rest so that the tissue can heal. They are not provided in order to return to normal activity and should not be used through the day. To do so or worsening pain at night can result from ongoing tissue damage and development of tolerance to the prescribed medicine. 6. Please allow 2-3 days to process refills. Prescriptions will not be mailed but must be picked up at the office. FOLLOW UP VISIT: Keep your scheduled follow-up appointment. Any questions, please call the office at . Pending Studies at Discharge: No Stand-Alone Forms: [email or web address], Smoking Cessation Medications and DC Order Prescriptions: New tramadol 50 mg tablet 50 mg PO Q6H PRN (Reason: pain, moderate) Qty: 30 RF: 0 oxycodone 5 mg tablet 5 mg PO Q6H PRN (Reason: pain, severe) Qty: 30 RF: 0 Continued (DME) Wheeled walker with seat See Rx Instructions .Route .MEDSUPPLY Qty: 1 RF: 0 atorvastatin 40 mg tablet 40 mg PO PM RF: 0 furosemide [Lasix] 20 mg tablet 40 mg PO QAM RF: 0 cinnamon bark [Cinnamon] 500 mg Capsule 500 mg PO QAM RF: 0 Women's Daily Formula 18 mg iron-400 mcg-500 mg Tablet 1 tab PO QAM RF: 0 Discontinued hydrocodone-acetaminophen 5-325 mg tablet See Rx Instructions PO Q8H PRN (Reason: pain) Qty: 60 RF: 0 Discharge Orders: Discharge Order (Routine); Ordered 12/23/20 Ordered By: Naveed Hoang/Other Patient Handouts: Prediabetes, 5 Steps for Eating Healthier, A1C Admission Data Admit Date/Time: 12/19/20 11:09 Attending Provider: Naveed Hale Admit Provider: Naveed Hale Primary Care Provider: Christina Cortez Other Providers: Joe Elliott ; Jaycob Pham [facility] Other Interventions: Discharge Summary Assessment (RN) Last Done: 12/23/20 10:52
--- NOTE | 2021-01-01 13:47 | Coding Query ---
Your help is needed for correct coding of this account; please clarify if the patients Post-operative Ileus was: (xx ) expected out of the surgery ( ) unexpected complication from the surgery ( )other please specify Thank you AMY Ríos [facility]CS
== END 2020-12-23 14:27 | disposition home health service (06) | DRG 454 ==
LOC: ASU 06:10 → 3W 11:09